=== PATIENT | female | born 1995 | race Two or more races ===

== ENCOUNTER 2016-04-19 17:18 | Emergency (ER) | payer OTHER ==
[2016-04-19] MEDS ORDERED: MAALOX/LIDO2%VISC/SIMETHICONE 40 ML BOT ONE (18:06)
[2016-04-19 18:41] LABS: URINE BILIRUBIN NEGATIVE (NEGATIVE); URINE BLOOD TRACE (NEGATIVE); URINE GLUCOSE (UA) NEGATIVE (NEGATIVE); URINE LEUKOCYTE ESTERASE 2+ (NEGATIVE); URINE NITRITE NEGATIVE (NEGATIVE); URINE PROTEIN 1+ (NEGATIVE); URINE UROBILINOGEN NORMAL (0-1 mg/dl)
[2016-04-19 18:42] LABS: URINE APPEARANCE HAZY; URINE COLOR YELLOW
[2016-04-19] MEDS ORDERED: SODIUM CHLORIDE 0.9% 1,000 ML ONE (18:44)
[2016-04-19] MEDS ORDERED: ONDANSETRON 4 MG ODT TAB ONE (18:44)
[2016-04-19 18:48] LABS: URINE BACTERIA 3+; URINE EPITHELIAL CELLS MANY /hpf; URINE WBC 30-40 /hpf
[2016-04-19 18:56] LABS: ABSOLUTE NEUTROPHIL COUNT 8.3 K/mm3 (1.8-7.7); BASO % 0.3 % (0.2-1.0); EOS # 0.3 (0.0-0.5); EOS % 2.2 % (0.9-2.9); HEMATOCRIT 37.6 % (37.0-47.0); HEMOGLOBIN 12.3 gm/l (12.0-16.0); IMM NEUT # 0.1 K/mm3 (0-0.2); IMM NEUT% 0.5 % (0-1); LYMPH # 2.2 (1.0-4.8); LYMPH % 19.3 % (15-45); MEAN CELL VOLUME 82.5 fl (81.0-99.0); MEAN CORPUSCULAR HGB CONC 32.7 g/dl (33.0-37.0); MEAN PLATELET VOLUME 9.8 fl (7.4-10.4); MONO # 0.6 (0.0-0.8); MONO % 5.1 % (4-12); NEUT % 72.6 % (43-75); PLATELET COUNT 275 K/mm3 (130-400); RED CELL DISTRIBUTION WIDTH 14.7 % (11.5-14.5)
[2016-04-19 19:23] LABS: ALB/GLOB RATIO 0.9 (>1.0); ALBUMIN 3.3 gm/dL (3.5-5.7); CALCIUM 8.9 mg/dL (8.6-10.3)
[2016-04-19 19:50] LABS: URINE APPEARANCE CLEAR; URINE BILIRUBIN NEGATIVE (NEGATIVE); URINE BLOOD NEGATIVE (NEGATIVE); URINE COLOR YELLOW; URINE GLUCOSE (UA) NEGATIVE (NEGATIVE); URINE LEUKOCYTE ESTERASE 1+ (NEGATIVE); URINE NITRITE NEGATIVE (NEGATIVE); URINE PROTEIN TRACE (NEGATIVE); URINE UROBILINOGEN NORMAL (0-1 mg/dl)
[2016-04-19] MEDS ORDERED: CEFTRIAXONE 1 GRAM DUPLEX 50 ML IV ONE (19:53)
[2016-04-19 19:55] LABS: URINE RBC 0-1 /hpf
[2016-04-19 19:56] LABS: URINE BACTERIA 1+; URINE EPITHELIAL CELLS MODERATE /hpf
[2016-04-19] MEDS ORDERED: PROMETHAZINE HCL 25 MG/ML VIAL ONE (20:11)
== END 2016-04-19 20:26 | disposition home or self-care (01) ==
LOC: ED 17:18
DX: O23.42 Unspecified infection of urinary tract in pregnancy, second trimester (principal); O99.611 Diseases of the digestive system complicating pregnancy, first trimester; K21.0 Gastro-esophageal reflux disease with esophagitis; Z3A.14 14 weeks gestation of pregnancy
CPT/HCPCS: 85025; 80053; 81001 ×2; 99284 ×2; 96372; 96361; 96365; A9270 ×2; J2550; J7030; J0696